=== PATIENT | female | born 1980 | race Caucasian/White ===

== ENCOUNTER 2016-10-08 07:39 | Emergency (ER) | payer BC ==
[~2016-10-08] VITALS: Ht 172.7 cm; Wt 74.8 kg
[2016-10-08 08:00] VITALS: BP 93/63
== END 2016-10-08 08:01 | disposition home or self-care (01) ==
LOC: ER 07:42
DX: N39.0 Urinary tract infection, site not specified (principal)
CPT/HCPCS: 99283; A4606; Z7610